=== PATIENT | male | born 1945 | race Caucasian/White ===

== ENCOUNTER → 2016-12-20 | Day surgery (SDC) | payer MEDICARE ==
[~2016-12-20] VITALS: Ht 172.7 cm; Wt 73.6 kg
[~2016-12-20] MED LIST: ASPIRIN EC81 MG PO; BACTRIM DS1 TAB PO; CASODEX50 MG PO; COLACE100 MG PO; COREG25 MG PO; FLOMAX0.4 MG PO; LISINOPRIL-HCT1 EAC1 PO; NEOSPORIN1 PKT TOP; NEURONTIN300 MG PO; NORCO 5-325 TA1 EACH PO; PRESERVISION A1 EAC2 PO; TYLENOL EXTRA500 MG PO; ULTRAM50 MG PO; VESICARE10 MG PO; ZOCOR40 MG PO
--- NOTE | ~2016-12-20 | OR ---
PATIENT'S NAME: LUZ SNYDER [facility] AGE: 71 Y [address] ROOM: [place] [address] [place] [facility] [place]: 12/20/2016 OR/Procedure Report DISCHARGE DATE: FAMILY PHYSICIAN: RIVER STEVENS MD ATTENDING PHYSICIAN: RIVER STEVENS SURGEON: River Stevens MD TRANSPLANTER ORCHID: None. DATE OF PROCEDURE: 12/20/2016 PREOPERATIVE DIAGNOSES: 1. Urinary retention. 2. Benign prostatic hyperplasia with bladder outlet obstruction. 3. Prostate cancer. POSTOPERATIVE DIAGNOSES: 1. Urinary retention. 2. Benign prostatic hyperplasia with bladder outlet obstruction. 3. Prostate cancer. OPERATIONS PERFORMED: 1. Cystoscopy with UroLift procedure (prostatic urethral lift). 2. Transurethral resection of bladder tumor. INDICATIONS FOR PROCEDURE: The patient is a pleasant, 71-year-old male with history of BPH with bladder outlet obstruction. He has had recent difficulty with urinary retention despite pharmacologic therapy with tamsulosin. He currently has an indwelling catheter in place. The patient also has a history of bladder tumor for which he underwent transurethral resection of bladder tumor on June 22, 2016. This bladder tumor was located at his bladder neck, and final surgical pathology was consistent with prostate adenocarcinoma. For his advanced prostate cancer, the patient has been on hormonal therapy with Trelstar. The patient was explained the risks, benefits, indications, and alternatives to the above procedure, wished to proceed, and consented freely. ANESTHESIA ADMINISTERED: Monitored anesthesia care. DESCRIPTION OF OPERATION: The patient was brought back to the operating room where he was placed on the OR table in the supine position. A surgical time- out was called where patient identification, surgical site, and procedure were then verified. We also did verify that the patient received an IV Levaquin antibiotic within an hour of beginning the procedure. The patient then underwent successful administration of monitored anesthesia care. The patient was then moved and placed in a low lithotomy position where his genital area was then prepped and draped in the usual sterile fashion. I began by PATIENT'S NAME: LUZ SNYDER [facility] AGE: 71 Y [address] ROOM: [place] [address] [place] [facility]: 12/20/2016 OR/Procedure Report DISCHARGE DATE: FAMILY PHYSICIAN: RIVER STEVENS MD ATTENDING PHYSICIAN: RIVER STEVENS advancing the rigid cystoscope easily into the patient's urinary bladder. His anterior urethra was within normal limits. His posterior urethra was notable for mjxlicny-bu-ycsjaz bilobar hyperplasia of the prostate. Upon entry into his bladder, full pancystoscopy was performed. I did immediately visualize some recurrent bladder tumor located at the bladder neck along the right aspect of his bladder neck at the 7 and 8 o'clock positions. This bladder tumor was located distal to his right ureteral orifice. This appeared consistent with previous prostate cancer resected from his bladder neck which has now regrown. His bladder also had evidence of long-term bladder outlet obstruction including 2+ bladder trabeculations. There were no other bladder tumors noted. His ureteral orifices were noted to be in their orthotopic locations. The cystoscope bridge was then replaced with the UroLift implant delivery device. The first treatment site was the patient's right side, approximately 1.5 cm distal to the bladder neck. The distal tip of the delivery device was then angled laterally approximately 20 degrees at this position to compress the lateral lobe. The trigger was pulled, thereby deploying a needle containing the implant through the prostate. The needle was then retracted, allowing one end of the implant to be delivered to the capsular surface of the prostate. The implant was then tensioned to assure capsular seating and removal of slack monofilament. The device was then angled back toward midline and slowly advanced proximally until verification with cystoscopy of the monofilament being centered in the delivery bay. With a final triggering, the urethral endpiece was then affixed to the monofilament, thereby tailoring the size and tension of the implant. Excess filament was severed with this maneuver. The device was then readvanced into the bladder. The opening effect from the implant placement was confirmed with cystoscopy. The above identical sequence was then repeated on the patient's left side. I then reinspected for successful placement of each implant as well as the degree of lateral lobe obstruction remaining. Two additional implants were delivered just proximal to the verumontanum in the same fashion again on the patient's right-hand side, and one on the left side. A total of 4 implants were delivered successfully. A final cystoscopy was performed to inspect the location and state of each implant to assure proper seating and location. Final inspection revealed a patent prostatic urethra with irrigation flow turned off. I then replaced the cystoscope with a resectoscope sheath using the visual obturator. I then used the bipolar electrode loop to carefully resect the bladder tumor located at his right bladder neck. This was sent for pathologic analysis. I inspected also for hemostasis, which was excellent. I then filled his bladder with approximately 200 mL of irrigation fluid to assist the patient with his voiding trial, and I then removed the cystoscope. The patient was then taken out of the lithotomy position where he was then awoken from monitored anesthesia care, transferred to the recovery bed, and transported to the recovery room in good condition. COMPLICATIONS: None. PATIENT'S NAME: LUZ SNYDER [facility] AGE: 71 Y [address] ROOM: [place] [address] [place] [facility]: 12/20/2016 OR/Procedure Report DISCHARGE DATE: FAMILY PHYSICIAN: RIVER STEVENS MD ATTENDING PHYSICIAN: RIVER STEVENS DRAINS: None. ESTIMATED BLOOD LOSS: Minimal. SPECIMENS: Bladder tumor for pathologic analysis. FOLLOWUP PLAN: We will have the patient try to undergo a voiding trial in Recovery today, and will plan to see him back for followup in Urology Clinic in 2 weeks. RIVER STEVENS MD GP/bakari /[id number] CC: Rich Sneed MD d: 12/20/16 1617 t: 12/23/16 1112, OPERATIVE SUMMARY
== END | disposition disaster alternative care site (69) ==
LOC: GPOC 12-16 11:00 → GSDC 11:00
PROC: 0TBB8ZZ Excision of Bladder, Via Natural or Artificial Opening Endoscopic (ICD-10-PCS; principal; 2016-12-20)
PROC: 0T7D8DZ Dilation of Urethra with Intraluminal Device, Via Natural or Artificial Opening Endoscopic (ICD-10-PCS; 2016-12-20)
DX: C61 Malignant neoplasm of prostate (principal); N40.1 Benign prostatic hyperplasia with lower urinary tract symptoms; N32.0 Bladder-neck obstruction; R33.8 Other retention of urine; I12.9 Hypertensive chronic kidney disease with stage 1 through stage 4 chronic kidney disease, or unspecified chronic kidney disease; N18.3 Chronic kidney disease, stage 3 (moderate); M19.90 Unspecified osteoarthritis, unspecified site; Z86.73 Personal history of transient ischemic attack (TIA), and cerebral infarction without residual deficits; Z79.82 Long term (current) use of aspirin; Z79.899 Other long term (current) drug therapy
CPT/HCPCS: 52234; C9740; J1956; J2001; J3010; J7120; L8699

== ENCOUNTER → 2017-01-19 | Outpatient (CLI) | payer MEDICARE ==
[2017-01-19 14:50] LABS: BASOPHIL % 0.2 %; EOSINOPHIL # 0.1 K/uL (0.0-0.5); EOSINOPHIL % 2.3 %; HEMATOCRIT 30.7 % (37.0-53.0); HEMOGLOBIN 9.8 g/dL (11.0-16.0); IMMATURE GRANULOCYTE % 0.2 %; LYMPHOCYTE # 1.2 K/uL (0.8-4.0); LYMPHOCYTE % 24.5 %; MCH 28.2 pg (27.0-34.0); MCHC 31.9 gm/dL (32.0-36.5); MCV 88.2 fl (83.0-98.0); MONOCYTE # 0.2 K/uL (0.0-1.0); MONOCYTE % 4.9 %; MPV 10.5 fl (9.4-12.4); NEUTROPHIL # (ANC) 3.3 K/uL (1.4-9.0); NEUTROPHIL % 67.9 %; NRBC % 0 /100WBC (0-0.00); PLATELET COUNT 174 K/uL (150-450); RBC 3.48 M/uL (3.50-5.50); RDW-CV 13.2 % (11.9-14.6); WBC 4.9 K/uL (4.0-11.0)
== END | disposition disaster alternative care site (69) ==
LOC: GOPD 01-13
PROVIDERS: Radiology Diagnostic Radiology
PROC: 0H94XZX Drainage of Neck Skin, External Approach, Diagnostic (ICD-10-PCS; principal; 2017-01-19)
DX: R22.1 Localized swelling, mass and lump, neck (principal)
CPT/HCPCS: J3010

== ENCOUNTER 2017-02-10 17:18 | Inpatient (IN) | payer MEDICARE ==
[~2017-02-10] VITALS: Ht 172.7 cm; Wt 72.3 kg
--- NOTE | ~2017-02-10 | CON ---
PATIENT'S NAME: LUZ SNYDER [facility] AGE: 71 Y [address] ROOM: [address] [address] [place] [facility] [place] DATE: 02/10/2017 Consultation DISCHARGE DATE: FAMILY PHYSICIAN: Rich Sneed MD ATTENDING PHYSICIAN: RIVER STEVENS DATE OF CONSULTATION: 02/14/2017 REFERRING PHYSICIAN: River Stevens MD CONSULT PHYSICIANS: Dr. Dey. REASON FOR CONSULTATION: Medical management. HISTORY OF PRESENT ILLNESS: The patient is a 71-year-old male with past medical history as below. The patient has been in the hospital postop day #3 for cystoscopy and evacuation of clot, but continues to have gross hematuria and acute blood loss anemia due to a presumed prostate cancer metastasis to the bladder, Christian score 10. At this point, the patient may require further cystoscopy versus percutaneous nephrostomy due to worsening renal function. A medical consult was requested. At this point, the patient has no acute complaints. He does also have a history of lung nodules, which may or may not have been biopsied that he is not sure. He has a history of a palpable right-sided neck mass, which also has been biopsied, but the patient is unable to tell me what the underlying pathology is. REVIEW OF SYSTEMS: All systems have been reviewed and negative aside from pertinent positives mentioned above. PAST MEDICAL HISTORY: This is incomplete as the patient is not a very good historian. [place] score 10 prostate cancer. Currently, on androgen deprivation therapy. 1. History of a CVA, unclear origin. 2. Essential hypertension. 3. Hypercholesterolemia. SURGICAL HISTORY: Significant for cystoscopy with dilation of urethral structures and clot evacuation/bladder fulguration. PATIENT'S NAME: LUZ SNYDER [facility] AGE: 71 Y [address] ROOM: [address] [address] [place]: [facility] [place] DATE: 02/10/2017 Consultation DISCHARGE DATE: FAMILY PHYSICIAN: Rich Sneed MD ATTENDING PHYSICIAN: RIVER STEVENS CURRENT MEDICATIONS: 1. Aspirin. 2. Half-normal saline. 3. Bicalutamide. 4. Simvastatin. 5. Acetaminophen with hydrocodone. 6. Trospium. 7. Opium/belladonna. 8. Dilaudid as needed. 9. Gabapentin. 10. Hydrochlorothiazide. 11. Carvedilol. 12. Multivitamin. 13. Flomax. 14. Morphine sulfate. 15. Zofran. 16. Ceftriaxone. SOCIAL HISTORY: The patient has a distant history of tobacco use. FAMILY HISTORY: Reviewed and is noncontributory due to known underlying etiology for patient's presentation. PHYSICAL EXAMINATION: VITAL SIGNS: Blood pressure 132/68, temperature 98.2, pulse is 92, respirations 16 saturating 98% on room air. GENERAL: Appears as a pale elderly male, in no acute distress. LYMPHATIC: Shows large cervical mass on the right lateral aspect of the neck. EYES: Shows pupils are equal and reactive to light. LUNG: Clear to auscultation. HEART: Heart rate is regular. GI: Abdomen is soft, nontender, and nondistended. : Reveals the CBI draining bloody urine. VASCULAR: 2+ pedal pulses. MUSCULOSKELETAL: Unremarkable. PSYCHIATRIC: Appropriate mood, cognition, and affect. LABORATORY STUDIES: Reveal a sodium of 134, potassium 3.8, chloride 100, bicarb 21, BUN 50, creatinine is 2.5. White count of 7.5, hemoglobin 6.6, and platelets of 151. IMPRESSION AND RECOMMENDATIONS: This is a 71-year-old male, postop day #3 with obstructive hematuria and PATIENT'S NAME: LUZ SNYDER [facility] AGE: 71 Y [address] ROOM: [place] [address] [place]: [facility] [place] DATE: 02/10/2017 Consultation DISCHARGE DATE: FAMILY PHYSICIAN: Rich Sneed MD ATTENDING PHYSICIAN: RIVER STEVENS hydronephrosis on the ultrasound. Individual problems to be addressed are: 1. Acute kidney injury. I believe the patient will benefit from discontinuation of hydrochlorothiazide in addition to lisinopril, which was already has been done. We will add additional agents, if blood pressure control is required. 2. Acute blood loss anemia. This is being monitored by the primary service and a transfusion has been ordered. 3. Prostate cancer with bladder metastasis as per primary service. 4. Obstructive uropathy with bilateral hydronephrosis as per primary service. 5. Neck mass. We will just check the patient's TSH and T4 and the workup can be deferred until current more acute problems are addressed. 6. Mild hyponatremia. I would consider changing his fluids from half normal to normal saline. This may help to perfuse his renal function. 7. Essential hypertension. Continue Coreg. 8. Hypercholesterolemia. Continue his statin. Additional management depend on clinical course. We will follow the patient with you. Thank you for allowing us to participate in the care of this patient. Time dedicated to patient encounter is 35 minutes. MD RUEL MART/bakari /[id number] d: 02/14/17 0956 t: 02/26/17 0129, CONSULTATION REPORT
--- NOTE | ~2017-02-10 | OR ---
PATIENT'S NAME: LUZ SNYDER [facility] AGE: 71 Y [address] ROOM: [place] [address] [place]: [facility] [place] ADMIT DATE: 02/10/2017 OR/Procedure Report DISCHARGE DATE: FAMILY PHYSICIAN: Rich Sneed MD ATTENDING PHYSICIAN: RIVER STEVENS SURGEON: River Stevens MD CO DIRECTOR: None. DATE OF PROCEDURE: 02/11/2017 PREOPERATIVE DIAGNOSES: 1. Gross hematuria. 2. Clot urinary retention. 3. History of prostate cancer. POSTOPERATIVE DIAGNOSES: 1. Gross hematuria. 2. Clot urinary retention. 3. History of prostate cancer. 4. Urethral stricture. OPERATIONS PERFORMED: 1. Cystoscopy with dilation of urethral stricture. 2. Cystoscopy with clot evacuation. 3. Cystoscopy with bladder fulguration. INDICATIONS FOR OPERATION: The patient is a 71-year-old male with history of high-grade prostate cancer with involvement of his bladder which is locally advanced. The patient has recently been having difficulties with gross hematuria and clot urinary retention. 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 The patient was explained the risks, benefits, indications, and alternatives to the above procedure, wished to proceed, and consented freely. ANESTHESIA ADMINISTERED: Monitored anesthesia care. DESCRIPTION OF OPERATION: The patient was brought back to the operating room where he was placed on the OR table in the supine position. A surgical time- out was called where patient identification, surgical site, and procedure were then verified. We also did verify that the patient received an IV Rocephin antibiotic prior to beginning the procedure. The patient then underwent successful administration of monitored anesthesia care. The patient was then moved and placed in a low lithotomy position where he was then prepped and draped in the usual sterile fashion. Given his fossa navicularis stricture, his urethra did not initially accommodate the resectoscope sheath, and so we started by sequentially dilating his urethra using male urethral sounds PATIENT'S NAME: LUZ SNYDER [facility] AGE: 71 Y [address] ROOM: [address] [address] LOC[place]: [facility] [place] ADMIT DATE: 02/10/2017 OR/Procedure Report DISCHARGE DATE: FAMILY PHYSICIAN: Rich Sneed MD ATTENDING PHYSICIAN: RIVER STEVENS starting at 16-Irish and sequentially dilating up to 30-Irish in caliber. I then was able to pass the resectoscope sheath using the visual obturator into the patient's urinary bladder. His anterior urethra was within normal limits, and his posterior urethra was notable for an open prostatic urethra given his history of UroLift procedure, and upon entry into his bladder, I performed cystoscopy, and there was a significant volume of clot within his bladder. I then used the 9facts evacuator to carefully evacuate out all of the clot within his bladder. Once we had complete evacuating, there did appear to be some area along the base of his bladder along the trigone along the area of previous bladder tumor resection which was somewhat friable and erythematous, and I used the bipolar loop to carefully cauterize this area. There was also some area along his bladder neck which I cauterized too. There was no visible recurrence or regrowth of bladder tumor at this time within his bladder. The rest of his bladder did appear to be normal except for some iwvs-ne-gczgwxqu bladder trabeculation. His ureteral orifices were noted to be in their orthotopic locations. I then carefully withdrew the resectoscope and then placed a 20-Irish coude Agustin catheter as the regular 20-Irish silicone catheter was meeting some resistance at his prostatic urethra. The catheter did irrigate freely, and I placed 10 mL of sterile water in the balloon, and this was placed to gravity drainage. The patient was then taken out of the lithotomy position where he was then awoken from monitored anesthesia care, transferred to the recovery bed, and transported to the recovery room in good condition. COMPLICATIONS: None. ESTIMATED BLOOD LOSS: Minimal. DRAINS: Indwelling 20-Irish coude Agustin catheter to gravity drainage. FOLLOWUP PLAN: We will plan to have the patient hopefully discharged later this afternoon if his output continues to remain clear and have him back on Tuesday, february 14, 2017, for catheter removal with a fill and pull and trial of void at that time. I will then want to see him back to check back up on his urinary symptoms in 2 weeks from now. I also briefly discussed consideration, particularly if he continues to have difficulties with gross hematuria and urinary retention including a cystoprostatectomy with creation of ileal conduit, and the patient will start thinking this over. RIVER STEVENS MD GP/modl PATIENT'S NAME: LUZ SNYDER [facility] AGE: 71 Y [address] ROOM: [place] [address] [place]: [facility] [place] ADMIT DATE: 02/10/2017 OR/Procedure Report DISCHARGE DATE: FAMILY PHYSICIAN: Rich Sneed MD ATTENDING PHYSICIAN: RIVER STEVENS /[id number] CC: Rich Sneed MD d: 02/11/17 1714 t: 02/13/17 0836, OPERATIVE SUMMARY
--- NOTE | ~2017-02-10 | HP ---
PATIENT'S NAME: LUZ SNYDER [facility] AGE: 71 Y [address] ROOM: [id number] [place], [place] [address] [place] [facility] [place] DATE: 02/10/2017 History & Physical DISCHARGE DATE: FAMILY PHYSICIAN: Rich Sneed MD ATTENDING PHYSICIAN: RIVER JONES DATE OF SERVICE: 02/10/2017 CHIEF COMPLAINT: Gross hematuria and urinary retention. HISTORY OF PRESENT ILLNESS: The patient is a pleasant 71-year-old male, who presented to my clinic earlier this afternoon with complaints of gross hematuria and difficulty with voiding. The patient has a history of advanced prostate cancer, initially diagnosed with extension into his bladder. He underwent transurethral resection of bladder tumor, June 22, 2016, with pathology consistent with prostate adenocarcinoma. He had underwent further evaluation with a CT scan of his abdomen and pelvis, June 22, 2016, with findings consistent with 2 lung masses in his left lower lung measuring about 1 cm in size as well as a mass along his posterior bladder wall. He had underwent a lung biopsy of this mass, August 05, 2016, with tissue insufficient for diagnosis on pathology. A bone scan, July 08, 2016, with no obvious metastasis. The patient had ultimately opted for initial androgen deprivation therapy and has been undergoing Trelstar injections and is due for another injection today. He is also due for another PSA today, which was drawn. His PSA trend includes a PSA of 3.2 (June 17, 2008), 2.82 (March 15, 2012), and 26.30 (June 30, 2016). Earlier in the week, he was seen in our clinic for a nurse visit to check a bladder residual and was noted to have over 600 residual in his bladder and refused a Agustin catheter, but ultimately allowed us to perform one straight catheterization. The patient has noted worsening blood in his urine with passage of small clots. His bladder scan on residual today was 517 mL. The patient also has a history of BPH with bladder outlet obstruction and underwent UroLift procedure, December 20, 2016, performed concurrently with a repeat resection of bladder tumor. Bladder tumor pathology at that time was consistent with [place] 10 adenocarcinoma of the prostate. The patient also has a neck mass and recently underwent biopsy consistent with thyroid carcinoma and states he has an upcoming appointment at [facility] in February to discuss his options. PAST MEDICAL HISTORY: 1. Prostatic adenocarcinoma. 2. Benign prostatic hyperplasia with bladder outlet obstruction. 3. Hypertension. 4. Hyperlipidemia. 5. History of stroke. 6. Thyroid cancer PATIENT'S NAME: LUZ SNYDER [facility] AGE: 71 Y [address] ROOM: [place] [id number] [place] [facility] [place] DATE: 02/10/2017 History & Physical DISCHARGE DATE: FAMILY PHYSICIAN: Rich Sneed MD ATTENDING PHYSICIAN: RIVER JONES PAST SURGICAL HISTORY: 1. Tonsillectomy. 2. Carotid endarterectomy. 3. Vasectomy. 4. Transurethral resection of bladder tumor, June 22, 2016. 5. Transurethral resection of bladder tumor and UroLift procedure, December 20, 2016. 6. Biopsy of neck mass by ENT FAMILY HISTORY: Significant for prostate cancer in his brother. SOCIAL HISTORY: The patient is retired. He is a former smoker and does drink alcohol. ALLERGIES: NO KNOWN DRUG ALLERGIES. CURRENT MEDICATIONS: See hospitalization medication reconciliation. REVIEW OF SYSTEMS: A full 10+ point review of systems was performed and is included on a separate page attached in the chart. Pertinent positive and negative findings are also included in the history of present illness. PHYSICAL EXAMINATION: VITAL SIGNS: The patient's height is 5 feet 8 inches. CONSTITUTIONAL: No acute distress, hemodynamically stable. HEENT: Extraocular muscles intact. Mucous membranes are moist. No drainage per ears and nose. CARDIAC: Good peripheral perfusion. RESPIRATORY: No audible wheezing, no stridor. GASTROINTESTINAL: Abdomen is soft, nontender, nondistended. MUSCULOSKELETAL: Normal muscle tone and range of motion. SKIN: No rashes or open sores. NEUROLOGIC: No focal deficits noted. PSYCHIATRIC: Answers questions appropriately with normal affect. HEMATOLOGIC: No bruises or any active sites of bleeding. IMPRESSION: 1. Prostatic adenocarcinoma. 2. Clot, urinary retention. 3. Gross hematuria. 4. Benign prostatic hyperplasia. PATIENT'S NAME: LUZ SNYDER [facility] AGE: 71 Y [address] ROOM: [place] [address] [place] [facility] [place] DATE: 02/10/2017 History & Physical DISCHARGE DATE: FAMILY PHYSICIAN: Rich Sneed MD ATTENDING PHYSICIAN: RIVER JONES PLAN: I had a long discussion today with the patient regarding my findings. Given his continued difficulty with urinary retention now in the setting of gross hematuria and clot urinary retention, I recommended further treatment with cystoscopy, clot evacuation, and possible fulguration. I suspect that the hematuria is coming from his prostatic adenocarcinoma, which is invading his bladder. We also did check another PSA today as well as administer another trial steroid injection. I will be curious to see how his prostate cancer is responding to androgen deprivation therapy. He is also due for a repeat CT scan of his chest to follow up on some lung nodules and we will have him undergo this while he is hospitalized. I did discuss the risks, benefits, indications, and alternatives and the patient's questions and concerns were addressed. We will plan to take him back to the operating room tomorrow and we will plan to keep him nothing to eat after midnight. RIVER JONES MD GP/modl /[id number] D: 028 T: 834 HISTORY & PHYSICAL
--- NOTE | ~2017-02-10 | CON ---
PATIENT'S NAME: LUZ SNYDER [facility] AGE: 71 Y [address] 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 The history of the present illness is obtained from the patient, whose memory is sketchy and unreliable; Dr. Stevens; and the patient's [facility] record which first commenced on 08/06/2016. Mr. Snyder is in the hospital for evaluation and treatment of gross hematuria, which had troubled him for two weeks. He has been experiencing nocturia four times a night and has strained to start his urine. He has experienced perineal pain for 2 months, which is non-radicular. This pain is reasonably well controlled with hydrocodone/APAP and tramadol. The patient has lost 10 pounds over the last three months. He lives alone in [place], [place]. He is retired. He has used a walker and wheelchair for seven years due to disabling right arm and leg weakness sustained from an ischemic left- sided stroke. The patient has not fallen for 6 years, but has longstanding right foot paresthesias. He is on no rehabilitation, physical therapy, or occupational therapy program. He does follow the arm and leg calisthenics recommended by his physical therapist prior to his dismissal from their service. He reckons he walks half a mile a day as part of his normal activities. He has a weight inspector, who does all the housework including meals. He is certainly capable of self-care, and can toilet and shower without assistance. Dr. Stevens admitted Mr. Snyder for evaluation and treatment of the gross hematuria on 02/10/2017. Dr. Stevens obtained a PSA, which has risen since his earlier PSAs since he has been on androgen deprivation therapy (voice report, Dr. Stevens). On 02/11/2017, Dr. Stevens performed a cystoscopy with dilation of urethral stricture, clot evacuation, and bladder fulguration. The anterior urethra was normal, but the posterior urethra was open. There was significant clot in the bladder. There was an abnormal area along the base of the bladder as well as the trigone, which was friable and erythematous, and was cauterized. An area along the bladder neck was cauterized as well. The tissue was not forwarded for evaluation. On 02/15/2017, Dr. Stevens repeated the cystoscopy with clot evacuation and fulguration, and performed a transurethral resection of a medium-sized bladder tumor. The specimen PATIENT'S NAME: LUZ SNYDER [facility] AGE: 71 Y [address] ROOM: [address] [address] LOCATION: [facility] [place] ADMIT DATE: 02/12/2017 Consultation DISCHARGE DATE: 02/17/2017 FAMILY PHYSICIAN: Rich Sneed MD ATTENDING PHYSICIAN: Arik Stevens revealed adenocarcinoma consistent with prostate cancer, Christian score 5+5=10. The patient was seen for further evaluation. Upon admission, the patient's white count was 5300 with 61% neutrophils and 26% lymphocytes, the hemoglobin was 8.4 g/dL, the MCV was 87, and the platelets were 125,000. The INR was 1.07. The CMS was remarkable for an estimated GFR of 37 and a creatinine of 1.8 mg/dL. The albumin was 3.1 g/dL. The PSA was apparently drawn at Dr. Stevens's office and is unavailable. During the course of the hospitalization, his EGFR fell to 24 mL/m, but has risen to 50 mL/m. The TSH was 3.63 uIU/mL. The T4 was normal at 7 mcg/dL. An ultrasound of the kidney on 02/13/2017 revealed moderate bilateral hydronephrosis with distention of both ureters, greater on the right than the left. There was heterogeneous material within the bladder, which was echogenic compatible with a bladder mass or hematoma. A CAT scan of the thorax on 02/10/2017 was compared to an earlier scan on 08/05/2016. There were multiple non-calcified pulmonary nodules in the parenchyma of both lungs increased in size and number since the chest CAT scan performed in June 2016. The current nodules measured up to 2.5 cm. Pleural thickening was seen in the right and left hemithorax with some pleural calcifications at the lower left and right hemithorax. There were emphysematous changes in the lung parenchyma with bilateral apical pleural thickening and pleural parenchymal scarring. Mediastinal and hilar adenopathy were seen with prominent precarinal and pretracheal lymph nodes present. Wall thickening was present in the distal esophagus with distention of the mid portion of the esophagus. The possibility of a distal esophageal mass existed based on the scan. At the subcarinal area, the esophageal diameter measured up to 4 cm. There were vascular calcifications in the thoracic aorta, arch vessels, and coronary arteries. A 5.5-cm diameter right neck mass was visualized in the upper portion of the CAT scan of the chest. The kidneys were atrophic. Mr. Snyder underwent a CT-guided biopsy of a left lung mass that was 2.3 cm on 08/05/2016. The biopsy was non-diagnostic. The patient did not recall the biopsy, but it is clearly established in the medical record that there was a biopsy. He doesn't recall the circumstances surrounding the referral. The patient has a history of prostate cancer. The patient's PSA was 3.2 in 2007 and 2.82 in 2011 and 26.3 on 06/30/2016. At that time, the patient had urinary retention and had over 600 mL residual in his bladder. The patient underwent a transurethral resection of bladder tumor on 06/22/2016, which revealed Seminole grade 5+5=10 adenocarcinoma. On 12/20/2016, the patient underwent a transurethral resection of the bladder tumor, which again revealed Seminole's grade 5+5=[address] Stevens placed the patient on triptorelin in June 2017. The patient has tolerated the androgen deprivation well, and his PSA fell transiently, but has started to rise again. PATIENT'S NAME: LUZ SNYDER [facility] AGE: 71 Y [address] ROOM: [address] [place] [id number] LOCATION: [facility] [place] ADMIT DATE: 02/12/2017 Consultation DISCHARGE DATE: 02/17/2017 FAMILY PHYSICIAN: Rich Sneed MD ATTENDING PHYSICIAN: Arik Stevens Mr. 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 In December 2016, he saw Dr. Norm Lee in otolaryngologic consultation. The patient had a right cervical neck mass. On 01/20/2017, a core needle biopsy of the mass revealed a well-differentiated papillary thyroid carcinoma. Dr. Lee has arranged for consultation at the [facility] in [place], [place]. The patient is unaware who his travel consultant will be. Mr. Snyder underwent a vasectomy in 1975. His brother developed adenocarcinoma of the prostate at age 63, and was treated with curative intent with a prostatectomy seven years ago. The patient has no family history of thyroid cancer and no history of external beam radiation therapy to the neck. He did receive radiation as a child to the right ear for congenital decreased auditory acuity. ACTIVE MEDICAL PROBLEMS, CHRONIC AND DIAGNOSED: 1. Benign prostatic hypertrophy. 2. Essential arterial hypertension, well controlled on medications. This was discovered on a checkup. The patient denies any history of end-organ damage, and has not been hospitalized with this condition. 3. Hyperlipidemia. 4. Atherosclerotic cerebrovascular disease complicated with an apparent ischemic cerebrovascular accident in 2009. The patient developed right-sided hemiparesis at that time, which has persisted. He later (2009), underwent a left carotid endarterectomy. 5. 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 6. 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 Despite his denial of external beam radiation, he was treated with radium therapy to the right ear as a child in [place], [place], and does not know what the rodriguez were. 7. Atherosclerotic vascular disease with thoracic aortic and aortic arch calcifications. 8. Atherosclerotic heart disease manifested with coronary artery calcifications. 9. Chronic obstructive lung disease manifested on CAT scan. The patient has not received medical therapy for this. 10. Hyperreflexic bladder treated with antispasmodics. 11. Mediastinal-hilar adenopathy with associated pleural thickening and pulmonary nodules. 12. Tobacco use-3/4 ppd x 40 years, abstained since 2005. 13. Excessive alcohol use-12 pack/d x 30 years, abstained since 2004. DUIs in past. ACUTE MEDICAL ILLNESSES (RESOLVED), PAST SURGERIES, AND INJURIES: 1. In 1949, tonsillectomy. 2. In 1959, right ankle fracture. 3. In 1975, vasectomy. 4. In 2004 - screening colonoscopy. 5. In 2009 - left carotid endarterectomy. PATIENT'S NAME: LUZ SNYDER [facility] AGE: 71 Y [address] ROOM: [address] [address] LOCATION: [facility] [place] ADMIT DATE: 02/12/2017 Consultation DISCHARGE DATE: 02/17/2017 FAMILY PHYSICIAN: Rich Sneed MD ATTENDING PHYSICIAN: Arik Stevens 6. In 2016 (08/06) - core needle biopsy of the lung, non-diagnostic. 7. In 2016, (12/20) TURBT. 8. In 2016, (02/06) neck mass biopsy, core needle. 9. In 2015, (06/22) TURBT. MEDICATIONS UPON ADMISSION: 1. APAP. 2. ASA 80 mEq p.o. daily. 3. Bicalutamide 50 mg p.o. every 24 hours. 4. Carvedilol 25 mg p.o. b.i.d. 5. Docusate 100 mg p.o. b.i.d. 6. Gabapentin 900 mg p.o. t.i.d. 7. Lisinopril/hydrochlorothiazide one tablet p.o. daily. 8. Simvastatin 40 mg p.o. daily at bedtime. 9. Trimethoprim sulfamethoxazole one p.o. b.i.d. 10. Tamsulosin 0.4 mg q.24 h. 11. Tramadol 50 mg p.o. every six hours as needed. 12. Multivitamin. ADVERSE REACTIONS TO MEDICATIONS, ALLERGIES, AND TRANSFUSIONS: The patient has no allergies. The patient recently received packed red blood cells, four total, during this hospitalization. HABITS: 1. Tobacco quit in 2005, [id number] per day for 40 years. 2. Alcohol. The patient has abstained from alcohol for 12 years, but drank a 12-pack of quarts daily for thirty years. He was picked up for DUI. 3. Caffeine. The patient drinks a pitcher of tea every third day. IMMUNIZATIONS: History was not obtained. FAMILY HISTORY: As noted for brother with prostate cancer. SOCIAL HISTORY: The patient was born in [place], [place], but was raised in [place]. 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 The patient was , but 25 years ago. He has a son and daughter in [place], [place]. He was 25 years prior to the divorce. The patient is not a jewish goer and lives alone in [place], [place]. PHYSICAL EXAMINATION: VITAL SIGNS: Pulse is 72 and regular, blood pressure is 120/45, respiratory PATIENT'S NAME: LUZ SNYDER [facility] AGE: 71 Y [address] ROOM: [address] [address] LOCATION: [facility] [place] ADMIT DATE: 02/12/2017 Consultation DISCHARGE DATE: 02/17/2017 FAMILY PHYSICIAN: Rich Sneed MD ATTENDING PHYSICIAN: Hilda,Arik rate is 22, temperature is 97.8, and SpO2 is 93% on 4 L. Height is 68 inches, weight is 159 pounds, and BMI is 24.2 kg/m2. GENERAL: Well-developed and reasonably well-nourished 76-year-old male, in no acute distress. HEENT: Acne rosacea. LYMPH NODES: The patient has a 10-cm confluent mass in the right cervical lymph node chain of the neck. NECK: Well-healed left carotid endarterectomy scar. SKIN: Nevi. CHEST: Clear. CARDIOVASCULAR: Regular rhythm with no murmurs, bruits, or adventitious sounds. BREASTS: Bilateral gynecomastia. ABDOMEN: Well-healed right upper quadrant scar. No masses, tenderness, or organomegaly. GENITALIA AND RECTAL: Agustin catheter is in place, uncircumcised. EXTREMITIES: The patient has clubbing of his fingernails and some tobacco staining. The patient has compression devices on his lower extremities and the pulses are not palpable. Strength is 3/5 on the right side and 5/5 on the left side. Cranial nerves II through XII are intact. IMPRESSION: 1. Pathologic stage IV (pT4,cNx,cMx); Christian score 5+5=10; adenocarcinoma of the prostate and invading the bladder, now androgen independent. The patient was at risk for this due to his family history of prostate cancer, probably not due to the vasectomy. We think our goals are palliative. The patient currently underwent palliative surgery for the gross hematuria, and Dr. Stevens has placed him on secondary hormone therapy with bicalutamide. When this fails, and it probably will in a very short time, more active hormone therapy such as enzalutamide or abiraterone plus prednisone would be considered. Cytotoxic chemotherapy would be a consideration. Repeating palliative surgery would also be a consideration. Palliative radiation therapy, which can be quite helpful at somewhat lower doses than employed for definitive therapy can often control hematuria. 2. Clinical stage IV (cTx,N1b,M1) well differentiated, papillary carcinoma of the thyroid metastatic to the right cervical lymph nodes and lungs. Presumably, this is an indolent tumor that has involved the lung with a nodule that grew from 2.3 cm to 2.5 cm over eight months. This appears to be asymptomatic, and our goals are palliative. The patient may have been at higher risk for this due to the radium treatments that he recalls receiving as a young man for congenital decreased right auditory acuity. We suspect the patient will with this and not from it since the prostate cancer appears much more aggressive. 3. Uncharacterized mediastinal and hilar lymphadenopathy and distal PATIENT'S NAME: LUZ SNYDER [facility] AGE: 71 Y [address] ROOM: [place] [address] LOCATION: [facility] [place] ADMIT DATE: 02/12/2017 Consultation DISCHARGE DATE: 02/17/2017 FAMILY PHYSICIAN: Rich Sneed MD ATTENDING PHYSICIAN: Arik Stevens esophageal wall thickening in a patient with history of tobacco and alcohol use. The patient's mediastinal and hilar lymph nodes may be due to the thyroid cancer. However, it is possible that he has a third process. DIAGNOSTIC: 1. We will get the name of the patient's travel consultant in [place] and forward this record to him. 2. The patient will return to the office when he returns to see Dr. Stevens to review this discussion, which was overwhelming. 3. Consider upper GI endoscopy with transesophageal biopsy to obtain one of the mediastinal lymph nodes and characterize the esophageal wall thickening. TREATMENT: 1. Continue triptorelin indefinitely. 2. Continue bicalutamide. 3. When the patient's symptoms are poorly controlled, another approach must be taken. 4. No treatment for the thyroid cancer. Presumably, this is indolent and he will with it, but not from it. Definitive treatment of the thyroid carcinoma would involve resection of the thyroid gland and cervical nodes, then administration of radioactive iodine, which is unnecessary and impractical in this situation. PATIENT EDUCATION: 1. Given a hand-out on the various clinical problems that his clinicians are evaluating. 2. Acknowledged his prognosis is quite guarded with the prostate cancer although the prognosis is reasonably good with the thyroid cancer. 3. Discussed the potential significance of the esophageal mass. JAMEY HAHN MD GKB/modl /[id number] CC: MD Norm Charlton MD d: 02/18/17 0333 t: 02/18/17 1253, CONSULTATION REPORT
--- NOTE | ~2017-02-10 | DS ---
PATIENT'S NAME: LUZ SNYDER [facility] AGE: 71 Y [address] ROOM: [place] [address] [place] [facility] [place]: 02/12/2017 Discharge Summary DISCHARGE DATE: 02/17/2017 FAMILY PHYSICIAN: Rich Sneed MD ATTENDING PHYSICIAN: Arik Stevens ADMISSION DIAGNOSES: 1. Metastatic prostate cancer. 2. Gross hematuria. 3. Clot urinary retention. 4. Benign prostatic hyperplasia. DISCHARGE DIAGNOSES: 1. Metastatic prostate cancer. 2. Gross hematuria. 3. Clot urinary retention. 4. Benign prostatic hyperplasia. REASON FOR HOSPITALIZATION: The patient is a pleasant 71-year-old male with history of metastatic prostate cancer to his bladder and most recently presented in clot urinary retention. He was having persistent difficulties and was admitted for further evaluation. PROCEDURES PERFORMED: 1. Cystoscopy with clot evacuation, fulguration and dilation of urethral stricture, February 11, 2017. 2. Cystoscopy with clot evacuation and fulguration as well as transurethral resection of bladder tumor, February 15, 2017. HOSPITAL COURSE: The patient was admitted on the above date and underwent the above-stated procedures. His hospital course was relatively uneventful. Given his persistent hematuria, he did require several units of packed red blood cells. Prior to his discharge home, his urine was clear, and we were able to wean him off of the continuous bladder irrigation. We also did get Oncology to see him given his significant history of metastatic prostate cancer, but also now thyroid cancer and enlarging lung masses. CONDITION OF THE PATIENT ON DISCHARGE: Good. FOLLOW UP PLAN: We will plan to see the patient back for a nurse visit in my clinic February 22, 2017 for catheter removal and trial of void. I will then plan to see him back for followup with myself in my clinic in approximately 2 weeks to check back in and check a residual. PATIENT'S NAME: LUZ SNYDER [facility] AGE: 71 Y [address] ROOM: [place] [address] [place] [facility] [place]: 02/12/2017 Discharge Summary DISCHARGE DATE: 02/17/2017 FAMILY PHYSICIAN: Rich Sneed MD ATTENDING PHYSICIAN: Arik Stevens MD MORIAH CRAIG/bakari /[id number] d: 02/24/17 0404 t: 03/01/17 1933, DISCHARGE SUMMARY
--- NOTE | ~2017-02-10 | OR ---
PATIENT'S NAME: LUZ SNYDER [facility] AGE: 71 Y [address] ROOM: [address] [address] [place]: [facility] [place]MIT DATE: 02/12/2017 OR/Procedure Report DISCHARGE DATE: FAMILY PHYSICIAN: Rich Sneed MD ATTENDING PHYSICIAN: RIVER STEVENS SURGEON: River Stevens MD LOGISTICS LEAD: None. DATE OF PROCEDURE: 02/15/2017 PREOPERATIVE DIAGNOSIS: 1. Metastatic (to bladder) prostate cancer 2. Gross hematuria 3. Clot urinary retention POSTOPERATIVE DIAGNOSIS: Same as above PROCEDURES PERFORMED: 1. Cystoscopy with clot evacuation and fulguration. 2. Transurethral resection of bladder tumor (medium-sized tumor). ANESTHESIA ADMINISTERED: Monitored anesthesia care. INDICATIONS FOR PROCEDURE: The patient is a pleasant 71-year-old male with history of metastatic prostate cancer to his bladder, who most recently presented in clot urinary retention and underwent initial cystoscopy with clot evacuation and fulguration, but also urethral dilation for a fossa navicularis stricture on 02/11/2017. He has had difficulty weaning off the continuous bladder irrigation with continued gross hematuria. He has also required several blood transfusions, given his persistent gross hematuria. The patient appears to be having castrate resistant prostate cancer with a rising PSA despite Trelstar injections, and we started him on antiandrogen therapy as well this week with bicalutamide. The patient also has a newly diagnosed history of thyroid cancer with a right neck mass, but also enlarging pulmonary nodules on CT scan consistent with possible metastatic disease. The patient explained the risks, benefits, indications, and alternatives to above procedure and wished proceed and consented freely. DESCRIPTION OF OPERATION: The patient was brought back to the operating room, where he was placed on the OR table in the supine position. A surgical time- out was called where patient identification, surgical site, and procedure was then verified. We also did verify that the patient did receive an IV antibiotic. The patient then underwent successful administration of monitored anesthesia care. The patient was then moved and placed in a low lithotomy position where he was then prepped and draped in the usual sterile fashion. I began by advancing the resectoscope sheath using the visual obturator easily into the patient's urinary bladder. His anterior urethra was within normal limits. His posterior urethra was notable for an open prostatic nonobstructing prostatic urethra. Upon entering to his bladder, a moderate amount of clot was visualized and I then used the [employer] evacuator to carefully evacuate out the clot from his bladder. Once we had completely evacuated the clot from his bladder, I then performed cystoscopy. Given the patient's renal insufficiency and recent bilateral hydronephrosis on ultrasound, we attempted PATIENT'S NAME: LUZ SNYDER [facility] AGE: 71 Y [address] ROOM: [address] [address] LOC[place]: [facility] [place] ADMIT DATE: 02/12/2017 OR/Procedure Report DISCHARGE DATE: FAMILY PHYSICIAN: Rich Sneed MD ATTENDING PHYSICIAN: RIVER STEVENS to cannulate his ureteral orifices, but given the edema and bladder tumor around his bladder neck was having difficulty in finding either of his ureteral orifices on multiple attempts passing a wire in the expected location of his ureteral orifices. He did appear to have some regrowth of bladder tumor along the right lateral bladder wall and bladder neck. I tried just fulgurating this area, but it was quite friable and it continued to bleed, so I then used the loop bipolar electrode to carefully resect down to bladder wall in this area, until I could get some good hemostasis at the base of the vessels in the bladder wall. There was no evidence of any bladder perforation. The tissue was sent for pathology labeled as bladder tumor. The size of this area was approximately 3 to 4 cm in size. I then reinspected for hemostasis, which was adequate and I then removed the resectoscope and then placed a 24-Italian Ganga catheter with 30 mL of water in the balloon and this was placed to continuous bladder irrigation and had a light pink output on continuous bladder irrigation. The patient was then taken out of the lithotomy position where he was then transferred to the recovery bed and then transferred to the recovery room in good condition. COMPLICATIONS: None. ESTIMATED BLOOD LOSS: Less than 100 mL. SPECIMENS: Bladder tumor for pathologic analysis. DRAINS: A 24-Italian Ganga Agustin catheter to continuous bladder irrigation. FOLLOWUP PLAN: We will observe the patient in the hospital and continue to try to wean him off the continuous bladder irrigation. His creatinine actually did improve slightly this morning, but if his creatinine appears to be worsening in the setting of hydronephrosis seen, we might need to consider bilateral percutaneous nephrostomy tubes for him. RIVER STEVENS MD GP/modl /[id number] CC: Rich Sneed MD d: 02/15/17 1207 t: 02/23/17 0837, OPERATIVE SUMMARY
[~2017-02-10 17:18] MED LIST changes: -BACTRIM DS1 TAB PO; -NEOSPORIN1 PKT TOP; -NORCO 5-325 TA1 EACH PO; -TYLENOL EXTRA500 MG PO; -VESICARE10 MG PO
[2017-02-10 20:04] LABS: BASOPHIL % 0.2 %; EOSINOPHIL # 0.2 K/uL (0.0-0.5); EOSINOPHIL % 4.2 %; HEMOGLOBIN 8.4 g/dL (11.0-16.0); IMMATURE GRANULOCYTE % 0.2 %; LYMPHOCYTE # 1.4 K/uL (0.8-4.0); LYMPHOCYTE % 25.9 %; MCHC 32.3 gm/dL (32.0-36.5); MCV 86.7 fl (83.0-98.0); MONOCYTE # 0.5 K/uL (0.0-1.0); MONOCYTE % 8.8 %; MPV 10.5 fl (9.4-12.4); NEUTROPHIL # (ANC) 3.2 K/uL (1.4-9.0); NEUTROPHIL % 60.7 %; NRBC % 0 /100WBC (0-0.00); RDW-CV 13.3 % (11.9-14.6); WBC 5.3 K/uL (4.0-11.0)
[2017-02-10 20:05] LABS: PLATELET COUNT 125 K/uL (150-450)
[2017-02-10 20:10] LABS: INR - (THERAPEUTIC) 1.07 (0.92-1.07); PROTIME 11.2 SECONDS (9.8-11.4)
[2017-02-10 20:19] LABS: ALBUMIN 3.1 gm/dL (3.5-5.0); ANION GAP 14.3 (10.0-19.0); CALCIUM 9.1 mg/dL (8.5-10.5); CREATININE 1.8 mg/dL (0.6-1.3); POTASSIUM 4.3 mMol/L (3.7-5.1); TOTAL BILIRUBIN 0.3 mg/dL (0.0-1.5); TOTAL PROTEIN 7.5 g/dL (6.0-8.4)
--- NOTE | 2017-02-11 04:49 | NUR ---
Pt. alert and oriented. Pt admitted at shift change for urinary clot and retention. Surgery in AM - preop checklist started. RA. VSS. Started IV L) forearm. Saline locked. IV antibx. Hx of CVA on right side. Pivots to w/c and uses walker. Incontinence within the past month. Wears depends - changed x2 this shift. Pt. not always aware he is soiled. Used urinal this shift. Urine bloody. Been NPO since midnight. Slept well throughout the shift. NO BM. Reports no flatus - BM yesterday before admitted. Pneumatic devices on. Needs lots of education on tasks being done. Cooperative with cares. Med recon list needs to be addressed. No PRN given this shift.
[2017-02-11 05:46] LABS: BASOPHIL % 0.3 %; EOSINOPHIL # 0.1 K/uL (0.0-0.5); EOSINOPHIL % 3.3 %; IMMATURE GRANULOCYTE % 0.5 %; MCH 27.8 pg (27.0-34.0); MCHC 32.7 gm/dL (32.0-36.5); MCV 84.9 fl (83.0-98.0); MONOCYTE # 0.4 K/uL (0.0-1.0); MONOCYTE % 10.3 %; MPV 10.7 fl (9.4-12.4); NEUTROPHIL # (ANC) 2.4 K/uL (1.4-9.0); NEUTROPHIL % 60.6 %; NRBC % 0 /100WBC (0-0.00); PLATELET COUNT 111 K/uL (150-450); RBC 2.59 M/uL (3.50-5.50); RDW-CV 13.3 % (11.9-14.6)
[2017-02-11 05:47] LABS: HEMOGLOBIN 7.2 g/dL (11.0-16.0)
[2017-02-11 05:59] LABS: CALCIUM 8.7 mg/dL (8.5-10.5); CREATININE 1.6 mg/dL (0.6-1.3)
--- NOTE | 2017-02-11 12:47 | NUR ---
In morning huddle it was reported that patient was down for surgery and that PACU called and asked for the discharge orders/paperwork to be sent down to them because the plan is for patient to discharge to home and no return to the floor. Will check the floor later this afternoon and confirm he went home.
--- NOTE | 2017-02-11 14:19 | NUR ---
Met with patient at bedside today at 1410. Introduced myself and the role of the CM department. Patient states he lives at home alone. He has a process stripper who he sees every day. She does all of his housekeeping, grocery shopping and meals for him. He states that said he would be able to discharge after 4pm today. His process stripper is coming to pick him up to drive him home. He denies any needs or concerns with discharge. He is complaining of pain and I notified his nurse Regla of this. No other needs.
--- NOTE | 2017-02-11 20:56 | NUR ---
Patient is alert and oriented, VSS, on room air. Has a 3 way catheter with CBI started at 1730 running wide open. Bright bloody urine. He came back from surgery around 1230 with a coude catheter to dependent drainage with a lot of dark bloody urine. Irrigated x2 with multiple clots out. Checked on him 15 minutes after the second irrigation and he was clotted off. Dr. Stevens called and order received to start CBI. Patient complained of pain throughout entire afternoon. Order received for Dilaudid, given x2 with last at 1745. Possible discharge tomorrow.
--- NOTE | 2017-02-12 04:43 | NUR ---
Pt. alert and oriented. Post surgery today of urinary clot removal. CBI wide open. Had to irrigate throughout shift. Changed out tubing and oliver bag as wlel. RA. VSS. IV R) forearm. No IVF. Hx. of CVA on right side. Has not been up. Reports no flatus. No BM this shift. Pain in penis. Last tramadol at 0415. Also has BNO supp. for spasms. Needs lots of encouragement and education on tasks being done. Cooperative with cares.
[2017-02-12 05:36] LABS: BASOPHIL % 0.3 %; EOSINOPHIL # 0.1 K/uL (0.0-0.5); EOSINOPHIL % 1.1 %; HEMATOCRIT 21.2 % (37.0-53.0); IMMATURE GRANULOCYTE % 0.5 %; LYMPHOCYTE # 1.1 K/uL (0.8-4.0); LYMPHOCYTE % 16.5 %; MCH 28.1 pg (27.0-34.0); MCHC 32.1 gm/dL (32.0-36.5); MCV 87.6 fl (83.0-98.0); MONOCYTE # 0.5 K/uL (0.0-1.0); MONOCYTE % 7.9 %; MPV 10.7 fl (9.4-12.4); NEUTROPHIL # (ANC) 4.8 K/uL (1.4-9.0); NEUTROPHIL % 73.7 %; NRBC % 0 /100WBC (0-0.00); PLATELET COUNT 129 K/uL (150-450); RBC 2.42 M/uL (3.50-5.50); RDW-CV 13.5 % (11.9-14.6); WBC 6.6 K/uL (4.0-11.0)
[2017-02-12 05:37] LABS: HEMOGLOBIN 6.8 g/dL (11.0-16.0)
[2017-02-12 05:45] LABS: ANION GAP 11.9 (10.0-19.0); CALCIUM 8.8 mg/dL (8.5-10.5); CREATININE 1.6 mg/dL (0.6-1.3); POTASSIUM 3.9 mMol/L (3.7-5.1)
--- NOTE | 2017-02-12 19:08 | NUR ---
Significant Event: A&O. VSS. AFEBRILE. ROOM AIR. HEMATURIA WITH CLOTS NEEDING IRRIGATION AT TIMES, CBI WIDE OPEN. B&O SUPP, TRAMADOL, NORCO, SANTURA GIVEN. NOTIFIED, NEW ORDER FOR 24 FR RUSCHE CATHETER TO BE INSERTED, MANY CLOTS AND CBI STILL WIDE OPEN. POOR APPETITE, REFUSED MEALS. FIRM ABDOMEN, BOWEL SOUNDS PRESENT. 2 UNITS pRBCS ORDERED, 1 GIVEN, 1 IN PROGRESS. Follow up: MONITOR HEMOGLOBIN, CONTINUE CBI
--- NOTE | 2017-02-13 04:33 | NUR ---
Significant Event: Pt alert and oriented. Finished up second unit of blood on this shift with no reactions noted. IV saline locked to right AC. No c/o pain. CBI continues to to run fast. Some clots noted however no need to irrigate this shift. Follow up:
[2017-02-13 05:49] LABS: BASOPHIL % 0.5 %; EOSINOPHIL # 0.3 K/uL (0.0-0.5); HEMATOCRIT 26.3 % (37.0-53.0); HEMOGLOBIN 8.6 g/dL (11.0-16.0); IMMATURE GRANULOCYTE % 0.5 %; LYMPHOCYTE # 2.2 K/uL (0.8-4.0); LYMPHOCYTE % 24.6 %; MCH 27.7 pg (27.0-34.0); MCHC 32.7 gm/dL (32.0-36.5); MCV 84.6 fl (83.0-98.0); MONOCYTE # 0.8 K/uL (0.0-1.0); MONOCYTE % 8.9 %; MPV 10.1 fl (9.4-12.4); NEUTROPHIL # (ANC) 5.5 K/uL (1.4-9.0); NEUTROPHIL % 62.5 %; NRBC % 0 /100WBC (0-0.00); PLATELET COUNT 119 K/uL (150-450); RBC 3.11 M/uL (3.50-5.50); RDW-CV 15.2 % (11.9-14.6); WBC 8.8 K/uL (4.0-11.0)
[2017-02-13 06:04] LABS: CALCIUM 8.2 mg/dL (8.5-10.5); CREATININE 2.6 mg/dL (0.6-1.3)
--- NOTE | 2017-02-13 19:15 | NUR ---
Patient is alert and oriented, VSS, on room air. 1-2 assist, stand and pivot to wheelchair. Partial weight bearing to R) leg and R) arm weakness secondary to a previous CVA. CBI running at a moderate rate, clear pink to light red color. Tramadol given at 1040, Johnson at 1421 and B&O at 1508. Irrigated once this shift with moderate amount of small clots out. Continue with CBI and monitor pain.
--- NOTE | 2017-02-14 04:42 | NUR ---
Significant Event: Patient had tramadol at 1900 and scheduled neurotin at HS. Otherwise has not reported much pain. Right arm and hand semi flaccid from a stroke. CBI still running at a fairly fast rate, with whaley colored urine. Alert and orientated, pleasant with cares. Follow up: Continue to monitor.
[2017-02-14 06:05] LABS: BASOPHIL % 0.1 %; EOSINOPHIL # 0.2 K/uL (0.0-0.5); EOSINOPHIL % 2.8 %; IMMATURE GRANULOCYTE % 0.3 %; LYMPHOCYTE # 1.3 K/uL (0.8-4.0); LYMPHOCYTE % 17.6 %; MCV 86.9 fl (83.0-98.0); MONOCYTE # 0.6 K/uL (0.0-1.0); MONOCYTE % 7.9 %; MPV 10.7 fl (9.4-12.4); NEUTROPHIL # (ANC) 5.4 K/uL (1.4-9.0); NEUTROPHIL % 71.3 %; NRBC % 0 /100WBC (0-0.00); RBC 2.36 M/uL (3.50-5.50); RDW-CV 14.8 % (11.9-14.6); WBC 7.5 K/uL (4.0-11.0)
[2017-02-14 06:08] LABS: HEMATOCRIT 20.5 % (37.0-53.0); HEMOGLOBIN 6.6 g/dL (11.0-16.0); MCHC 32.2 gm/dL (32.0-36.5); PLATELET COUNT 151 K/uL (150-450)
[2017-02-14 06:25] LABS: ANION GAP 16.8 (10.0-19.0); CALCIUM 8.1 mg/dL (8.5-10.5); CREATININE 2.5 mg/dL (0.6-1.3); POTASSIUM 3.8 mMol/L (3.7-5.1)
--- NOTE | 2017-02-14 18:41 | NUR ---
Patient is alert and oriented. Held Coreg for SBP under 120 per parameters. CBI running wide open. Stayed in bed all day. Irrigated 1x this shift with large amount of clots. B&O given this shift. NPO after midnight. Surgery possible in am.
--- NOTE | 2017-02-15 04:25 | NUR ---
Pt. alert and oriented. VSS. RA. 1-2 assist stand and pivot to w/c. Partial weight bearing to R) leg and R) arm due to weakness from previous CVA. R) IV saline locked. L) Forearm with IVF at 75ml. CBI wide open at start of shift with irrigation x2. End of shift CBI at slower rate with light pink urine. Pt. tolerating well. NPO since midnight. Surgery in AM - consents signed. Last tramadol at 1955. Last B&O supp. around 1700. No BM this shift. Continued giving blood at beginning of shift due to hemoglobin at 6.6. Cooperative with cares. Slept well throughout shift.
[2017-02-15 05:47] LABS: BASOPHIL % 0.4 %; EOSINOPHIL # 0.4 K/uL (0.0-0.5); HEMOGLOBIN 8.6 g/dL (11.0-16.0); IMMATURE GRANULOCYTE % 0.4 %; LYMPHOCYTE # 1.4 K/uL (0.8-4.0); LYMPHOCYTE % 24.2 %; MCHC 33.6 gm/dL (32.0-36.5); MCV 82.6 fl (83.0-98.0); MONOCYTE # 0.6 K/uL (0.0-1.0); MONOCYTE % 10.7 %; NEUTROPHIL # (ANC) 3.2 K/uL (1.4-9.0); NEUTROPHIL % 57.3 %; NRBC % 0 /100WBC (0-0.00); PLATELET COUNT 153 K/uL (150-450); WBC 5.6 K/uL (4.0-11.0)
[2017-02-15 05:54] LABS: ANION GAP 14.7 (10.0-19.0); CREATININE 1.8 mg/dL (0.6-1.3); POTASSIUM 3.7 mMol/L (3.7-5.1)
[2017-02-15 05:56] LABS: HEMATOCRIT 25.6 % (37.0-53.0); MCH 27.7 pg (27.0-34.0)
--- NOTE | 2017-02-15 12:48 | NUR ---
A-SCREENED D/T LOS HT: 68 IN. WT: 72.3 KG. BMI: 24.2 NPO THIS AM FOR A CYSTO LABS: NA 137, K+ 3.7,G ARELI 98, BUN 44, TELETYPEWRITER OPERATOR 1.8, ALB 3.1 MEDS: CASODEX, ZOCOR, NROCO, SANCTURA, DILAUDID, MVI, PRN BOWEL MEDS DIET RX: REGULAR. PO INTAKE REFUSALS-100% EST NUTR NEEDS: [id number] KCALS (25-30 KCALS/KG) 72-80 GM PROTEIN (1.0-1.1 GM/KG) 1 ML FLUID/KCAL D-AT NUTRITION RISK W/INADEQUATE ORAL INTAKE R/T POOR APPETITE AEB INTAKE RECORDS. I-OFFER ENSURE ENLIVE BID AT B/L M/E-GOAL: PO INTAKE >/=50% PRIOR TO ADMIT 1)F/U PO INATKE, SUPPLEMENT, AND POC IN 3-5 DAYS 2)ASSIST NEEDED
--- NOTE | 2017-02-15 16:47 | NUR ---
Significant event: Patient is alert and oriented. VSS. on room air. IV to left forearm with fluids running at 75mls/hr and R)AC saline locked. Had a Cystoscopy, clot evacuation, TURBT today. CBI running at fast rate per patient. Have been able to slow down to moderate rate, but pt gets very anxious about this and requests it to be at a fast drip. Pain meds given, norco last at 1645, with a B&O suppository. Has had a hx of CVA, with right sided weakness. Cooperative with cares.
--- NOTE | 2017-02-16 04:39 | NUR ---
Pt. alert and oriented - anxious about CBI. VSS. RA. IV to L) forearm with IVF at 75ml. Cystoscopy today, clot evacuation, and TURBT yesterday. CBI running at slow rate with light pink urine. Pain meds given at beginning of shift. Pain controlled rest of shift. Slept through the shift. Hx. of CVA on r) side. Cooperative with cares.
[2017-02-16 10:14] LABS: CALCIUM 8.7 mg/dL (8.5-10.5); CREATININE 1.4 mg/dL (0.6-1.3)
[2017-02-16 10:27] LABS: BASOPHIL % 0.5 %; EOSINOPHIL # 0.5 K/uL (0.0-0.5); EOSINOPHIL % 7.8 %; HEMATOCRIT 27.1 % (37.0-53.0); HEMOGLOBIN 8.9 g/dL (11.0-16.0); IMMATURE GRANULOCYTE % 0.5 %; LYMPHOCYTE # 0.9 K/uL (0.8-4.0); LYMPHOCYTE % 16.2 %; MCH 27.7 pg (27.0-34.0); MCHC 32.8 gm/dL (32.0-36.5); MCV 84.4 fl (83.0-98.0); MONOCYTE # 0.4 K/uL (0.0-1.0); MONOCYTE % 7.7 %; MPV 10.4 fl (9.4-12.4); NEUTROPHIL # (ANC) 3.9 K/uL (1.4-9.0); NEUTROPHIL % 67.3 %; NRBC % 0 /100WBC (0-0.00); RBC 3.21 M/uL (3.50-5.50); RDW-CV 15.2 % (11.9-14.6); WBC 5.7 K/uL (4.0-11.0)
[2017-02-16 11:10] LABS: PLATELET COUNT 182 K/uL (150-450)
--- NOTE | 2017-02-16 17:29 | NUR ---
Significant Event:Is A/O.IV in Rt.arm.Rt.side weakened from previous stroke.Had tramadol x2,last at 1640.CBI stopped at 0915.Nikole urbina pale pink with no clots noted.Had mod loose stool today.Maybe home tomorrow.No appetite. Follow up:
--- NOTE | 2017-02-16 18:06 | NUR ---
THE PATIENT ASKED VIRTUAL NURSE TO CALL HIS VESSEL ENGINEER (ALEKS) TO LET HER KNOW THERE MAY BE A POSSIBLITY HE WOULD BE DISMISSED TOMORROW IF THIS DOES HAPPEN SHE WILL NEED SOMEONE TO CALL HER AND LEAVE HER A MESSAGE ON HER CELL. ALEKS WORKS UNTIL 2 PM THEN SHE CAN BE HERE TO GET HIM. PLEASE LET HER KNOW IF THE PATIENT NEEDS ANY CLOTHES TO GO HOME IN. ALEKS # [phone]
--- NOTE | 2017-02-17 04:35 | NUR ---
Pt. alert and oriented. VSS - low BP at times. RA. IV to L) forearm with fluids at 75ml. IV antibx. CBI stopped. Agustin catheter - draining dark, concentrated urine. Pain meds last given at 2230. Slept well through the night. Ate a little bit for supper - appetite still decreased. No emesis noted this shift. Cooperative with cares.
[2017-02-17] MEDS ORDERED: CASODEX50 MG PO (13:23)
[2017-02-17] MEDS ORDERED: NEOSPORIN1 PKT TOP (13:24)
[2017-02-17] MEDS ORDERED: TYLENOL EXTRA500 MG PO (13:26)
[2017-02-17] MEDS ORDERED: BACTRIM DS1 TAB PO (13:27)
[2017-02-17] MEDS ORDERED: NORCO 5-325 TA1 EACH PO (13:30)
[2017-02-17] MEDS ORDERED: VESICARE10 MG PO (13:30)
--- NOTE | 2017-02-17 13:43 | NUR ---
Met with patient at bedside this morning. He states his plan is to return home with his chief operating officer assisting with his cares. He prefers to not go home with the catheter. I asked if he thinks he can be taught how to care for the cath if Dr. Stevens states he needs to discharge with it. At first patient was telling me he does not think he can learn how to care for the cath and he would rather stay in the hospital until he can discharge without it. I explained to him that a cath is something insurance will view as being managed at home so they will not continue to cover his days it the cath is the only reason he is here. He then tells me that he has had a cath at home before and he knows what to do to care for it, but he does not want to have to take care of it. At approximately 1230 patient's nurse Alla informs me that Dr. Stevens has discharged patient to home with the oliver cath. Patient will return home with no additional needs.
--- NOTE | 2017-02-17 16:00 | NUR ---
DISCHARGE: Pt. was explained discharge instructions, cysto ed, cath care, cath cleaning, and leg bag training. Educated on pressure ulcer prevention and fall prevention. Educated on new medications. No questions or concerns. Patient verbalized understanding of teaching. Left with all belongings and prescriptions. Left with friend in wheelchair to front door and driven home by friend.
--- NOTE | 2017-02-17 18:16 | NUR ---
DISMISSED PER W/C TO CAR WITH RECEPTIONIST TELEPHONE OPERATOR WITH DISCHARGE INSTRUCTIONS.
--- NOTE | 2017-03-04 12:15 | NUR ---
Post discharge follow up call made. Patient is doing well. Is aware of follow up appointments. Agustin catheter has been removed and he is having no trouble with urination. No questions or concerns.
== END 2017-02-17 16:00 | disposition disaster alternative care site (69) | DRG 669 ==
LOC: GMSU 17:18
PROVIDERS: ADMIT Urology
DX: C79.11 Secondary malignant neoplasm of bladder (principal); N17.9 Acute kidney failure, unspecified; N13.30 Unspecified hydronephrosis; D62 Acute posthemorrhagic anemia; N13.9 Obstructive and reflux uropathy, unspecified; I10 Essential (primary) hypertension; E78.5 Hyperlipidemia, unspecified; Z86.73 Personal history of transient ischemic attack (TIA), and cerebral infarction without residual deficits; Z85.46 Personal history of malignant neoplasm of prostate
CPT/HCPCS: C1769; G0378; J0696; J1170; J1940; J2270; J3010; J7030; J7040; J7050; P9016